=== PATIENT | female | born 1990 ===

== ENCOUNTER 2021-12-27 12:58 | Outpatient (CLI) | payer BC ==
[~2021-12-27 12:58] MED LIST: Magnevist 469MG/ML 20 ML VIAL ONE
== END 2021-12-27 12:59 | disposition home or self-care (01) ==
LOC: MRI 12:58
PROVIDERS: ATTEND Psychiatry & Neurology Neurology
DX: R41.89 Other symptoms and signs involving cognitive functions and awareness (principal)
CPT/HCPCS: 70553; 95816; 95957; A9579